=== PATIENT | female | born 1995 | race Two or more races ===

== ENCOUNTER 2017-12-31 19:05 | Emergency (ER) | payer MEDICAID ==
--- NOTE | 2017-12-31 20:07 | ED Physician Documentation ---
History of Present Illness - Stated complaint Stated Complaint: DIZZY,VOMITING - Chief complaint Chief Complaint: Abd Pain - History obtained from History obtained from: Patient - History of Present Illness Timing: How many days ago (4) Pain level now: 5 Improved by: nothing Worsened by: PO intake (not tolerating any solids x few days, and intermittently tolerating liquids) - Additonal information Additional information: c/o 4 days of gradual onset, gradually worsening nausea and vomiting, lightheadedness/dizziness, generalized headache Review of Systems Constitutional: denies: Fever Eyes: reports: Reviewed and negative Cardiac: reports: Reviewed and negative Respiratory: reports: Reviewed and negative GI: reports: Nausea, Vomiting. denies: Abdominal Pain, Constipation, Diarrhea : denies: Dysuria, Frequency, Now EGA Neurologic: reports: Generalized weakness, Headache. 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 : None HEENT: None Psych: None Musculoskeletal: None Derm: None - Past Surgical History Past Surgical History: No - Present Medications Home Medications: Ambulatory Orders Medication Instructions Recorded Confirmed Antipyrine/Benzo/Gly Otic Drop 5 drops OT Q4H PRN #1 bottle 05/25/14 [Auralgan Otic Drops] Ibuprofen [Motrin] 400 mg PO Q6H PRN #30 tablet 05/25/14 Ondansetron Odt [Zofran] 4 mg TL Q6H PRN #10 tablet 05/25/14 Sulfamethoxazole/Trimethoprim 1 each PO BID #14 tablet 11/22/14 [Sulfamethoxazole-Tmp Ds Tablet] Ondansetron Odt [Zofran] 4 mg TL Q6H PRN #10 tablet 12/31/17 - Allergies Allergies/Adverse Reactions: Allergies Allergy/AdvReac Type Severity Reaction Status Date / Time No Known Drug Allergies Allergy Verified 12/31/17 19:11 - Social History Does the pt smoke?: No Smoking Status: Never smoker Does the pt drink ETOH?: No Does the pt have substance abuse?: No - Immunizations Immunizations are current?: No - POLST Patient has POLST: No PD ED PE NORMAL - Vitals Vital signs reviewed: Yes - General General: Alert and oriented X 3, No acute distress, Well developed/nourished - HEENT HEENT: Moist mucous membranes - Neck Neck: Supple, no meningeal sign - Cardiac Cardiac: RRR, No murmur - Respiratory Respiratory: No respiratory distress, Clear bilaterally - Abdomen Abdomen: Normal bowel sounds, Soft, Non tender, Non distended - Back Back: No CVA TTP - Derm Derm: Normal color, Warm and dry Results - Vitals Vitals: Vital Signs - 24 hr 12/31/17 12/31/17 19:07 21:32 Temperature 36 C L 36.6 C Heart Rate 64 65 Respiratory 16 16 Rate Blood Pressure 106/67 104/68 O2 Saturation 100 100 Oxygen O2 Source Room air - Labs Labs: Laboratory Tests 12/31/17 12/31/17 12/31/17 20:02 20:02 20:06 WBC 9.8 RBC 4.57 Hgb 13.5 Hct 39.5 MCV 86.6 MCH 29.7 MCHC 34.3 RDW 12.5 Plt Count 180 MPV 8.9 Neut # (Auto) 8.1 H Lymph # (Auto) 1.0 L [place] # (Auto) 0.6 Eos # (Auto) 0.0 Baso # (Auto) 0.0 Absolute Nucleated RBC 0.01 Nucleated RBC % 0.1 Sodium 138 Potassium 3.7 Chloride 102 Carbon Dioxide 27 Anion Gap 9.0 BUN 9 Creatinine 0.6 Estimated GFR (MDRD) 127 Glucose 99 Calcium 8.7 Total Bilirubin 0.5 AST 17 ALT 14 Alkaline Phosphatase 71 Total Protein 7.5 Albumin 4.1 Globulin 3.4 Albumin/Globulin Ratio 1.2 Lipase 20 L Urine Color YELLOW Urine Clarity CLEAR Urine pH 8.5 H Ur Specific [place] 1.015 Urine Protein NEGATIVE Urine Glucose (UA) NEGATIVE Urine Ketones 15 H Urine Occult Blood NEGATIVE Urine Nitrite NEGATIVE Urine Bilirubin NEGATIVE Urine Urobilinogen 1 (NORMAL) Ur Leukocyte Esterase NEGATIVE Ur Microscopic Review NOT INDICATED Urine Culture Comments NOT INDICATED Urine HCG, Qual NEGATIVE PD MEDICAL DECISION MAKING - ED course Complexity details: reviewed results, re-evaluated patient, considered differential, d/w patient Departure - Departure Disposition: 01 Home, Self Care Clinical Impression: Vomiting Condition: Good Instructions: ED Nausea Vomiting Follow-Up: [facility] [Provider Group] Prescriptions: Ondansetron Odt [Zofran] 4 mg TL Q6H PRN #10 tablet PRN Reason: Nausea / Vomiting Forms: Activity restrictions Discharge Date/Time: 12/31/17 22:22
[2017-12-31 20:12] LABS: BILIRUBIN,URINE NEGATIVE (NEGATIVE); GLUCOSE, URINE (UA) NEGATIVE (NEGATIVE); KETONES,URINE (UA) 15 mg/dL (NEGATIVE); LEUKOCYTE ESTERASE, URINE NEGATIVE (NEGATIVE); NITRITE,URINE NEGATIVE (NEGATIVE); OCCULT BLOOD,URINE NEGATIVE (NEGATIVE); PH,URINE 8.5 PH (5.0-7.5); PROTEIN,URINE NEGATIVE (NEGATIVE); UROBILINOGEN,URINE 1 (NORMAL) E.U./dL (NORMAL)
[2017-12-31] MEDS ORDERED: SODIUM CHLORIDE 0.9% 1,000 ML IV STA (20:13)
[2017-12-31] MEDS ORDERED: ONDANSETRON 4 MG/2 ML VIAL IVP STA ×2 (20:13→21:06)
[2017-12-31 20:14] LABS: CLARITY,URINE CLEAR (CLEAR); HCG UR QUAL NEGATIVE
[2017-12-31 20:27] LABS: ALBUMIN 4.1 g/dL (3.2-5.5); ALBUMIN/GLOBULIN RATIO 1.2 (1.0-2.2); BILIRUBIN,TOTAL 0.5 mg/dL (0.2-1.0); CALCIUM 8.7 mg/dL (8.5-10.3); CREATININE 0.6 mg/dL (0.4-1.0); TOTAL PROTEIN 7.5 g/dL (6.7-8.2)
[2017-12-31 20:29] LABS: BASOPHILS % (AUTO) 0.2 %; EOSINOPHILS % (AUTO) 0.4 %; HGB - HEMOGLOBIN 13.5 g/dL (12.0-16.0); LYMPHOCYTES % (AUTO) 10.3 %; MEAN CORPUSCULAR HEMOGLOBIN 29.7 pg (27.0-31.0); MEAN CORPUSCULAR HGB CONC 34.3 g/dL (32.0-36.0); MEAN CORPUSCULAR VOLUME 86.6 fL (81.0-99.0); MEAN PLATELET VOLUME 8.9 fL (7.9-10.8); MONOCYTES # (AUTO) 0.6 10^3/uL (0.0-1.0); MONOCYTES % (AUTO) 6.1 %; NEUTROPHILS # (AUTO) 8.1 10^3/uL (1.5-6.6); PLT - PLATELET COUNT 180 10^3/uL (130-450); RED BLOOD COUNT 4.57 10^6/uL (4.20-5.40); RED CELL DISTRIBUTION WIDTH 12.5 % (12.0-15.0); WHITE BLOOD COUNT 9.8 x10^3/uL (4.8-10.8)
[2017-12-31 21:33] VITALS: BP 104/68
[2017-12-31] MEDS ORDERED: MAG HYDROX/AL HYDROX/SIMETH 30 ML UDC PO STA (22:02)
[2017-12-31] MEDS ORDERED: PANTOPRAZOLE 40 MG TABLET PO STA (22:02)
== END 2017-12-31 22:22 | disposition home or self-care (01) ==
LOC: ED 19:05
DX: R11.2 Nausea with vomiting, unspecified (principal)
CPT/HCPCS: 36415; 80053; 81003; 81025; 83690; 85025; 96374; 99283; A9270; 81001; 87086

== ENCOUNTER 2018-04-21 20:20 | Emergency (ER) | payer OTHER, MEDICAID ==
[2018-04-21] MEDS ORDERED: TETANUS/DIPHTHERIA/PERTUSSIS 0.5 ML SYRINGE IM ONE (21:05)
--- NOTE | 2018-04-21 21:06 | ED Physician Documentation ---
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.) Review of Systems Constitutional: reports: Reviewed and negative Cardiac: reports: Reviewed and negative Respiratory: reports: Reviewed and negative PD PAST MEDICAL HISTORY - Past Medical History Past Medical History: Yes Cardiovascular: None Respiratory: None Neuro: None Endocrine/Autoimmune: None GI: None PROJECT MGR: None : None HEENT: None Psych: None Musculoskeletal: None Derm: None - Past Surgical History Past Surgical History: No - Present Medications Home Medications: Ambulatory Orders Medication Instructions Recorded Confirmed Antipyrine/Benzo/Gly Otic Drop 5 drops OT Q4H PRN #1 bottle 05/25/14 [Auralgan Otic Drops] Ibuprofen [Motrin] 400 mg PO Q6H PRN #30 tablet 05/25/14 Ondansetron Odt [Zofran] 4 mg TL Q6H PRN #10 tablet 05/25/14 Sulfamethoxazole/Trimethoprim 1 each PO BID #14 tablet 11/22/14 [Sulfamethoxazole-Tmp Ds Tablet] Ondansetron Odt [Zofran] 4 mg TL Q6H PRN #10 tablet 12/31/17 - Allergies Allergies/Adverse Reactions: Allergies Allergy/AdvReac Type Severity Reaction Status Date / Time No Known Drug Allergies Allergy Verified 04/21/18 20:23 - Social History Does the pt smoke?: No Smoking Status: Never smoker Does the pt drink ETOH?: No Does the pt have substance abuse?: No - Immunizations Immunizations are current?: No - POLST Patient has POLST: No PD ED PE NORMAL - Vitals Vital signs reviewed: Yes - General General: Alert and oriented X 3, No acute distress - Extremities Extremities: Other (On the dorsal side of the left fifth finger at the level of the PIP, on the radial side there is a 5 mm shallow laceration without limited strength in extension or distal neurovascular compromise.) - Neuro Neuro: Alert and oriented X 3, Normal speech Results - Vitals Vitals: Vital Signs - 24 hr 03/17/19 20:23 Temperature 36.6 C Heart Rate 73 Respiratory 16 Rate Blood Pressure 131/76 H O2 Saturation 100 Oxygen O2 Source Room air Procedures - Laceration (location) Left pinky Length in cm: 0.5 Wound type: Linear, Superficial Wound Preparation: Irrigated copiously NS Skin layer closure: Dermabond Other: Tetanus booster given Complexity: Simple Departure - Departure Disposition: 01 Home, Self Care Clinical Impression: Laceration Condition: Good Record reviewed to determine appropriate education?: Yes Instructions: ED Laceration Ext Skin Glue Comments: Your blood pressure was elevated today on check into the emergency department. This does not mean that you have hypertension, it is a common phenomenon to come to the emergency department and have elevated blood pressure. I recommend that you see your primary care physician within the week to have it rechecked when you are feeling better.
[2018-04-21 21:10] VITALS: BP 122/68
== END 2018-04-21 21:10 | disposition home or self-care (01) ==
LOC: ED 20:20
DX: S61.217A Laceration without foreign body of left little finger without damage to nail, initial encounter (principal); W45.8XXA Other foreign body or object entering through skin, initial encounter; Y99.0 Civilian activity done for income or pay; R03.0 Elevated blood-pressure reading, without diagnosis of hypertension
CPT/HCPCS: 1040M; 12001; 99282; 99283